=== PATIENT | male | born 1955 | race Caucasian/White ===

== ENCOUNTER 2019-12-23 07:17 | Outpatient (CLI) | payer BC ==
[2019-12-23 16:44] LABS: ALBUMIN 4.5 g/dL (3.2-5.5); ALBUMIN/GLOBULIN RATIO 1.6 (1.0-2.2); ALKALINE PHOSPHATASE 46 IU/L (42-121); ALT ALANINE AMINOTRANSFERASE 21 IU/L (10-60); AST ASPARTATE AMINOTRANSFERASE 20 IU/L (10-42); BILIRUBIN,TOTAL 0.7 mg/dL (0.2-1.0); BUN - BLOOD UREA NITROGEN 21 mg/dL (6-20); CALCIUM 9.2 mg/dL (8.5-10.3); CARBON DIOXIDE - CO2 27 mmol/L (21-32); CHLORIDE 106 mmol/L (101-111); CHOL/HDL RATIO 3.3 (<5.0); CHOLESTEROL 154 mg/dL; CREATININE 0.9 mg/dL (0.6-1.2); GLUCOSE 104 mg/dL (70-100); HDL CHOLESTEROL 46 mg/dL; LDL CHOLESTEROL,CALCULATED 92 mg/dL; SODIUM 140 mmol/L (135-145); TOTAL PROTEIN 7.3 g/dL (6.7-8.2); VLDL CHOLESTEROL 16 mg/dL
== END 2019-12-23 07:18 | disposition home or self-care (01) ==
LOC: LAB.S 07:17
PROVIDERS: ATTEND Internal Medicine Cardiovascular Disease
DX: I25.10 Atherosclerotic heart disease of native coronary artery without angina pectoris (principal)
CPT/HCPCS: 36415; 80053; 80061; 83721

== ENCOUNTER 2020-01-11 07:11 | Outpatient (CLI) | payer BC | END 2020-01-11 07:12 | disposition home or self-care (01) | LOC: LAB.S 07:11 | PROVIDERS: ATTEND Internal Medicine | DX: Z85.46 Personal history of malignant neoplasm of prostate (principal) | CPT/HCPCS: 36415; 84153 ==

== ENCOUNTER 2021-01-03 17:16 | Outpatient (CLI) | payer BC | END 2021-01-03 17:17 | disposition home or self-care (01) | LOC: LAB.S 17:16 | PROVIDERS: ATTEND Internal Medicine | DX: Z85.46 Personal history of malignant neoplasm of prostate (principal) | CPT/HCPCS: 36415; 84153 ==

== ENCOUNTER 2021-02-07 12:34 | Outpatient (CLI) | payer BC | END 2021-02-07 12:35 | disposition home or self-care (01) | LOC: LAB.S 12:34 | PROVIDERS: ATTEND Internal Medicine | DX: Z85.46 Personal history of malignant neoplasm of prostate (principal) | CPT/HCPCS: 36415; 84153 ==

== ENCOUNTER 2021-03-08 11:47 | Outpatient (CLI) | payer BC | END 2021-03-08 11:48 | disposition home or self-care (01) | LOC: LAB.S 11:47 | PROVIDERS: ATTEND Internal Medicine | DX: Z85.46 Personal history of malignant neoplasm of prostate (principal) | CPT/HCPCS: 36415; 84153 ==

== ENCOUNTER 2021-05-02 08:00 | Outpatient (CLI) | payer BC ==
[2021-05-02 18:33] LABS: ALBUMIN 4.1 g/dL (3.2-5.5); ALBUMIN/GLOBULIN RATIO 1.5 (1.0-2.2); BILIRUBIN,TOTAL 0.7 mg/dL (0.2-1.0); CALCIUM 8.9 mg/dL (8.5-10.3); CREATININE 1.2 mg/dL (0.6-1.2); POTASSIUM 3.7 mmol/L (3.5-5.0); TOTAL PROTEIN 6.9 g/dL (6.7-8.2)
== END 2021-05-02 23:59 ==
LOC: LAB 08:00
PROVIDERS: ATTEND Internal Medicine Medical Oncology
DX: C61 Malignant neoplasm of prostate (principal)
CPT/HCPCS: 36415; 80053

== ENCOUNTER 2021-08-18 13:04 | Outpatient (CLI) | payer BC | END 2021-08-18 13:05 | disposition home or self-care (01) | LOC: LAB.S 13:04 | PROVIDERS: ATTEND Internal Medicine | DX: Z85.46 Personal history of malignant neoplasm of prostate (principal) | CPT/HCPCS: 36415; 84153 ==

== ENCOUNTER 2021-09-12 11:48 | Outpatient (CLI) | payer BC | END 2021-09-12 11:49 | disposition home or self-care (01) | LOC: LAB 11:48 | PROVIDERS: ATTEND Internal Medicine | DX: Z85.46 Personal history of malignant neoplasm of prostate (principal) | CPT/HCPCS: 36415; 84153 ==

== ENCOUNTER 2021-11-17 11:24 | Outpatient (CLI) | payer MEDICARE | END 2021-11-17 11:25 | disposition home or self-care (01) | LOC: LAB.S 11:24 | PROVIDERS: ATTEND Internal Medicine | DX: Z85.46 Personal history of malignant neoplasm of prostate (principal) | CPT/HCPCS: 36415; 84153 ==

== ENCOUNTER 2021-12-21 10:08 | Outpatient (CLI) | payer MEDICARE | END 2021-12-21 10:09 | disposition home or self-care (01) | LOC: LAB 10:08 | PROVIDERS: ATTEND Internal Medicine | DX: C61 Malignant neoplasm of prostate (principal); C79.51 Secondary malignant neoplasm of bone | CPT/HCPCS: 36415; 84153 ==

== ENCOUNTER 2022-01-12 12:25 | Outpatient (CLI) | payer MEDICARE | END 2022-01-12 12:26 | disposition home or self-care (01) | LOC: LAB.S 12:25 | PROVIDERS: ATTEND Internal Medicine | DX: Z85.46 Personal history of malignant neoplasm of prostate (principal) | CPT/HCPCS: 36415; 84153 ==

== ENCOUNTER 2022-02-14 20:21 | Emergency (ER) | payer MEDICARE ==
[2022-02-14 21:00] LABS: BILIRUBIN,URINE NEGATIVE (NEGATIVE); GLUCOSE, URINE (UA) NEGATIVE (NEGATIVE); KETONES,URINE (UA) TRACE mg/dL (NEGATIVE); OCCULT BLOOD,URINE LARGE (NEGATIVE); PROTEIN,URINE >=300 mg/dL (NEGATIVE); UROBILINOGEN,URINE 1 (NORMAL) E.U./dL (NORMAL)
[2022-02-14 21:06] LABS: CLARITY,URINE TURBID (CLEAR)
[2022-02-14 21:07] LABS: BACTERIA,URINE None Seen /HPF (None Seen); EPITHELIAL CELLS,UR None Seen /HPF (<= Few); RBC,URINE TNTC /HPF (0-5); WBC,URINE 0-3 /HPF (0-3)
[2022-02-14 21:33] LABS: BASOPHILS # (AUTO) 0.1 10^3/uL (0.0-0.1); BASOPHILS % (AUTO) 1.3 %; EOSINOPHILS # (AUTO) 0.2 10^3/uL (0.0-0.7); EOSINOPHILS % (AUTO) 2.4 %; HCT - HEMATOCRIT 37.3 % (42.0-52.0); HGB - HEMOGLOBIN 11.6 g/dL (14.0-18.0); LYMPHOCYTES # (AUTO) 1.4 10^3/uL (1.5-3.5); LYMPHOCYTES % (AUTO) 18.8 %; MEAN CORPUSCULAR HEMOGLOBIN 24.8 pg (27.0-31.0); MEAN CORPUSCULAR HGB CONC 31.1 g/dL (32.0-36.0); MEAN CORPUSCULAR VOLUME 79.7 fL (80.0-94.0); MEAN PLATELET VOLUME 9.7 fL (7.4-11.4); MONOCYTES # (AUTO) 0.7 10^3/uL (0.0-1.0); MONOCYTES % (AUTO) 9.5 %; NEUTROPHILS # (AUTO) 5.2 10^3/uL (1.5-6.6); NEUTROPHILS % (AUTO) 67.7 %; PLT - PLATELET COUNT 310 10^3/uL (130-450); RED BLOOD COUNT 4.68 10^6/uL (4.70-6.10); WHITE BLOOD COUNT 7.7 x10^3/uL (4.8-10.8)
[2022-02-14] MEDS ORDERED: iohexoL-300 100 ML VIAL ONE (21:43)
[2022-02-14 21:49] LABS: ALBUMIN 4.2 g/dL (3.2-5.5); ALBUMIN/GLOBULIN RATIO 1.4 (1.0-2.2); BILIRUBIN,TOTAL 0.5 mg/dL (0.2-1.0); CALCIUM 9.2 mg/dL (8.5-10.3); CREATININE 1.3 mg/dL (0.6-1.2); POTASSIUM 3.9 mmol/L (3.5-5.0); TOTAL PROTEIN 7.2 g/dL (6.7-8.2)
[2022-02-14] MEDS ORDERED: iohexoL-300 100 ML VIAL IVP ONE (22:21)
[2022-02-14] MEDS ORDERED: MORPHINE 2 MG/ML CARPUJECT IVP STA (22:33)
[2022-02-14] MEDS ORDERED: ONDANSETRON 4 MG/2 ML VIAL IVP STA (22:33)
[2022-02-14] MEDS ORDERED: SODIUM CHLORIDE 0.9% 1,000 ML IV STA (22:33)
[2022-02-14] MEDS ORDERED: MORPHINE 2 MG/ML CARPUJECT ONE (22:47)
--- NOTE | 2022-02-14 23:29 | CT Report ---
PROCEDURE: ABDOMEN/PELVIS W INDICATIONS: R flank pain/stent placed 02/02/hematuria CONTRAST: 100mL Omni 300 TECHNIQUE: After the administration of intravenous contrast, 5 mm thick sections acquired from the diaphragms to the symphysis. 5 mm thick coronal and sagittal reformats were acquired. For radiation dose reducti on, the following was used: automated exposure control, adjustment of mA and/or kV according to rosendo ent size. COMPARISON: None. FINDINGS: Image quality: Excellent. Lung bases:There is minimal dependent atelectasis. Heart: Heart is normal in size. ABDOMEN: Liver: No mass lesion. Gallbladder: Within normal limits without calcified gallstones. Biliary ducts: No biliary ductal dilatation. Pancreas: Unremarkable. Spleen: Normal in size. Adrenal Glands: No adrenal nodules. Kidneys and Ureters: There is a right ureteral stent with the proximal portal and the renal pelvis a nd the distal coil in the bladder. There is severe right hydronephrosis and moderate to severe right hydroureter. There is high density within the right ureter and layering high density within the diste nded right renal pelvis consistent with blood product. A nonobstructing stone is demonstrated within the inferior pole the right kidney measuring up to 0.8 cm with attenuation values of approximately 50 0-600 Hounsfield units. Left kidney demonstrates no hydronephrosis or nephrolithiasis. Left ureter is nondistended. Stomach and Bowel: Stomach, small bowel loops, and colon are normal in caliber and wall thickness. N o evidence of appendicitis. Peritoneum: No abnormal intraperitoneal fluid. No free air. Ventral Wall: No hernia. Abdominal Nodes: No retroperitoneal or mesenteric adenopathy by size criteria. Vessels: Aorta and inferior vena cava are normal in size. PELVIS: Pelvic Organs:There are a few fiducial markers within the prostate.. Bladder:The bladder demonstrates normal wall thickness. No bladder stones. Pelvic Nodes: No enlarged lymph nodes. Miscellaneous: No inguinal hernias are seen. Bones: Multiple sclerotic lesions are demonstrated within the visualized osseous structures including lesions within the lower thoracic and throughout the lumbar spine. Associated scalloping along the s uperior and inferior endplates is demonstrated at L2. No retropulsed fragments in the spinal canal. T here are postsurgical changes status post posterior fixation at L3-L5. IMPRESSION: 1. Severe right hydronephrosis with moderate to severe right hydroureter associated with dependent bl ood product in the right renal collecting system and ureter. An underlying mass cannot be excluded. 2. Right ureteral stent demonstrated with the proximal coil in the renal pelvis and distal coil in th e bladder. 3. Nonobstructing right renal stone. 4. Multiple sclerotic lesions within the visualized osseous structures consistent with blastic metast atic disease. Reviewed by: Jorge Horne MD on 02/14/2022 11:37 PM PST Approved by: Jorge Horne MD on 02/14/2022 11:37 PM PST Station ID: [id number]
[2022-02-15 00:20] VITALS: BP 139/75
--- NOTE | 2022-02-15 00:36 | ED Physician Documentation ---
PD HPI MALE - Stated complaint Stated Complaint: MALE - Chief complaint Chief Complaint: Abd Pain - History obtained from History obtained from: Patient - Additional information Additional information: Patient is a 66-year-old male with a history of prostate cancer presenting for evaluation of gross hematuria and right flank pain. He is being seen by Dr. Martin at the [facility] with urology for right-sided hydronephrosis of unclear etiology. He had a ureter stent placed on February 02. He reports increased activity in the last 2 days with painting a boat house and crouching and moving around a lot on his knees. Around noon time he started having flank pain and subsequently has noticed blood in his urine.He takes a baby aspirin but otherwise denies blood thinners. He denies feeling dizzy, lightheaded, having fevers, chest pain, difficulty breathing, nausea vomiting or diarrhea.He denies pain with urination. Review of Systems Constitutional: denies: Fever Nose: denies: Congestion Cardiac: denies: Chest pain / pressure Respiratory: denies: Dyspnea GI: denies: Abdominal Pain, Vomiting : reports: Hematuria Musculoskeletal: reports: Back pain (Right flank) Neurologic: denies: Headache PD PAST MEDICAL HISTORY - Past Medical History Past Medical History: Yes Cardiovascular: Coronary artery disease : Kidney stones Other Past Medical History: Prostate Cancer that metastasized to his Lumbar Spine - Past Surgical History Past Surgical History: Yes Ortho: Other Cardiovascular: CABG - Present Medications Home Medications: Ambulatory Orders Medication Instructions Recorded Confirmed Amlodipine Besylate [Norvasc] 10 mg PO DAILY 04/10/21 04/10/21 Aspirin [Aspirin EC] 81 mg ORAL DAILY 04/10/21 04/10/21 Atorvastatin [Lipitor] 10 mg ORAL DAILY PM 04/10/21 04/10/21 Ezetimibe [Zetia] 10 mg PO QD 04/10/21 04/10/21 Latanoprost/Pf [Latanoprost 0.005% 2 drops OP DAILY PM 04/10/21 04/10/21 Eye Drop] Loratadine [Claritin] 10 mg ORAL DAILY 04/10/21 04/10/21 Omeprazole Magnesium 20 mg PO DAILY 04/10/21 04/10/21 Silodosin [Rapaflo] 8 mg PO DAILY 04/10/21 04/10/21 Bicalutamide [Casodex] 50 mg PO DAILY #90 tablet 05/29/21 oxyCODONE [Roxicodone] 5 mg PO ONCE 05/29/21 05/29/21 - Allergies Allergies/Adverse Reactions: Allergies Allergy/AdvReac Type Severity Reaction Status Date / Time No Known Drug Allergies Allergy Verified 02/14/22 20:44 - Social History Does the pt smoke?: No Smoking Status: Never smoker Does the pt drink ETOH?: No Does the pt have substance abuse?: No - Immunizations Immunizations are current?: Yes - POLST Patient has POLST: No PD ED PE NORMAL - General General: Alert and oriented X 3, No acute distress, Well developed/nourished - HEENT HEENT: Atraumatic - Neck Neck: Supple, no meningeal sign - Cardiac Cardiac: RRR, No murmur - Respiratory Respiratory: No respiratory distress, Clear bilaterally - Abdomen Abdomen: Soft, Non tender, Non distended - Back Back: Other (Right CVA tenderness to palpation) - Derm Derm: Warm and dry - Extremities Extremities: No edema Results - Vitals Vitals: Vital Signs - 24 hr 02/14/22 02/14/22 02/14/22 20:35 21:56 22:27 Temperature 36.9 C Heart Rate 92 73 76 Respiratory 18 16 16 Rate Blood Pressure 140/70 H 146/77 H 142/84 H O2 Saturation 98 98 97 02/15/22 02/15/22 00:19 01:00 Temperature 36.6 C Heart Rate 69 Respiratory 16 Rate Blood Pressure 139/75 H O2 Saturation 98 Oxygen O2 Source Room air - Labs Labs: Laboratory Tests 02/14/22 02/14/22 02/14/22 20:49 21:20 21:20 WBC 7.7 RBC 4.68 L Hgb 11.6 L Hct 37.3 L MCV 79.7 L MCH 24.8 L MCHC 31.1 L RDW 15.0 Plt Count 310 MPV 9.7 Neut # (Auto) 5.2 Lymph # (Auto) 1.4 L [place] # (Auto) 0.7 Eos # (Auto) 0.2 Baso # (Auto) 0.1 Absolute Nucleated RBC 0.00 Nucleated RBC % 0.0 Sodium 142 Potassium 3.9 Chloride 105 Carbon Dioxide 26 Anion Gap 11.0 BUN 26 H Creatinine 1.3 H Estimated GFR (MDRD) 55 L Glucose 116 H Calcium 9.2 Total Bilirubin 0.5 AST 21 ALT 22 Alkaline Phosphatase 65 Total Protein 7.2 Albumin 4.2 Globulin 3.0 Albumin/Globulin Ratio 1.4 Lipase 43 Urine Color RED/BLOODY Urine Clarity TURBID Urine pH 6.0 Ur Specific [place] 1.025 Urine Protein >=300 H Urine Glucose (UA) NEGATIVE Urine Ketones TRACE Urine Occult Blood LARGE H Urine Nitrite ... Urine Bilirubin NEGATIVE Urine Urobilinogen 1 (NORMAL) Ur Leukocyte Esterase ... Urine RBC TNTC H Urine WBC 0-3 Ur Epithelial Cells None Seen Ur Squamous Epith Cells Not Reportable Urine Bacteria None Seen Ur Microscopic Review INDICATED Urine Culture Comments NOT INDICATED PD MEDICAL DECISION MAKING - ED course Complexity details: reviewed old records ([facility] labs 02/02/22: Cr 1.35; Hgb 11.3/Hct 36.3), reviewed results, re-evaluated patient, d/w patient, d/w legal consultant (Dr Brown) ED course: 1240 - Discussed with Dr. Brown, on-call urology for the [facility]. Reviewed patient's presentation, labs, bladder scan and imaging, . One possibility is that the stent could have moved a little bit causing the hematuria. Nothing emergent to do this evening. Recommends outpatient follow-up with Dr. Martin. Patient evaluated with right flank pain and gross hematuria. Noted to already have a ureter stent in place. He is afebrile with stable vital signs. His labs appear to be at his baseline. A CT scan was reviewed. I did consult with urology who felt patient was stable for Outpatient follow-up. His urine does not suggest infection. Patient is able to void without difficulty (bladder scan ~150ml). Patient does report overdoing it with his activity in the last 2 days with painting a boat house on his property. I did encourage him to take it easier. Patient counseled on concerning symptoms to return for. Departure - Departure Disposition: 01 Home, Self Care Clinical Impression: Gross hematuria, Ureteral stent present Condition: Stable Instructions: Hematuria Poss Causes Comments: You could be having blood in your urine from your stent moving. At this time I do not see signs of an infection in your urine.Your labs appear stable.Please call Dr. Martin to arrange for close follow-up. Please also take it easy through the weekend. Return to the ER with any concerns. Discharge Date/Time: 02/15/22 01:00
== END 2022-02-15 01:00 | disposition home or self-care (01) ==
LOC: ED 20:21
DX: R31.0 Gross hematuria (principal); Z96.0 Presence of urogenital implants
CPT/HCPCS: 36415; 74177; 80053; 81001; 83690; 85025; 96372; 99283; 99284; Q9967; 81003; 87086

== ENCOUNTER 2022-02-23 12:30 | Outpatient (CLI) | payer MEDICARE ==
[2022-02-23 15:18] LABS: BASOPHILS # (AUTO) 0.1 10^3/uL (0.0-0.1); BASOPHILS % (AUTO) 1.4 %; EOSINOPHILS # (AUTO) 0.1 10^3/uL (0.0-0.7); EOSINOPHILS % (AUTO) 2.5 %; HCT - HEMATOCRIT 37.7 % (42.0-52.0); HGB - HEMOGLOBIN 11.3 g/dL (14.0-18.0); LYMPHOCYTES # (AUTO) 1.5 10^3/uL (1.5-3.5); LYMPHOCYTES % (AUTO) 26.7 %; MEAN CORPUSCULAR HEMOGLOBIN 24.5 pg (27.0-31.0); MEAN CORPUSCULAR VOLUME 81.8 fL (80.0-94.0); MEAN PLATELET VOLUME 10.4 fL (7.4-11.4); MONOCYTES # (AUTO) 0.6 10^3/uL (0.0-1.0); MONOCYTES % (AUTO) 10.9 %; NEUTROPHILS # (AUTO) 3.3 10^3/uL (1.5-6.6); NEUTROPHILS % (AUTO) 58.1 %; PLT - PLATELET COUNT 306 10^3/uL (130-450); RED BLOOD COUNT 4.61 10^6/uL (4.70-6.10); WHITE BLOOD COUNT 5.6 x10^3/uL (4.8-10.8)
[2022-02-23 15:30] LABS: ALBUMIN/GLOBULIN RATIO 1.2 (1.0-2.2); BILIRUBIN,TOTAL 0.4 mg/dL (0.2-1.0); CALCIUM 9.4 mg/dL (8.5-10.3); CREATININE 1.2 mg/dL (0.6-1.2); POTASSIUM 4.4 mmol/L (3.5-5.0); TOTAL PROTEIN 7.3 g/dL (6.7-8.2)
== END 2022-02-23 12:31 | disposition home or self-care (01) ==
LOC: LAB.S 12:30
PROVIDERS: ATTEND Specialist
DX: C79.51 Secondary malignant neoplasm of bone (principal)
CPT/HCPCS: 36415; 80053; 84153; 85025

== ENCOUNTER 2022-03-17 16:08 | Outpatient (CLI) | payer MEDICARE ==
[2022-03-17 16:26] LABS: BASOPHILS # (AUTO) 0.1 10^3/uL (0.0-0.1); BASOPHILS % (AUTO) 1.7 %; EOSINOPHILS # (AUTO) 0.2 10^3/uL (0.0-0.7); EOSINOPHILS % (AUTO) 3.7 %; HCT - HEMATOCRIT 36.3 % (42.0-52.0); LYMPHOCYTES # (AUTO) 1.6 10^3/uL (1.5-3.5); LYMPHOCYTES % (AUTO) 29.9 %; MEAN CORPUSCULAR HEMOGLOBIN 24.4 pg (27.0-31.0); MEAN CORPUSCULAR HGB CONC 30.3 g/dL (32.0-36.0); MEAN CORPUSCULAR VOLUME 80.7 fL (80.0-94.0); MEAN PLATELET VOLUME 9.4 fL (7.4-11.4); MONOCYTES # (AUTO) 0.6 10^3/uL (0.0-1.0); MONOCYTES % (AUTO) 10.3 %; NEUTROPHILS # (AUTO) 2.9 10^3/uL (1.5-6.6); NEUTROPHILS % (AUTO) 54.2 %; PLT - PLATELET COUNT 337 10^3/uL (130-450); RED CELL DISTRIBUTION WIDTH 15.2 % (12.0-15.0); WHITE BLOOD COUNT 5.4 x10^3/uL (4.8-10.8)
[2022-03-17 16:34] LABS: ALBUMIN 4.2 g/dL (3.2-5.5); ALBUMIN/GLOBULIN RATIO 1.2 (1.0-2.2); BILIRUBIN,TOTAL 0.4 mg/dL (0.2-1.0); CALCIUM 9.4 mg/dL (8.5-10.3); CREATININE 1.3 mg/dL (0.6-1.2); POTASSIUM 4.5 mmol/L (3.5-5.0); TOTAL PROTEIN 7.6 g/dL (6.7-8.2)
[2022-03-21 16:08] LABS: FREE TESTOSTERONE(DIRECT) 1.3 pg/mL (6.6-18.1); TESTOSTERONE <3 ng/dL (264-916)
== END 2022-03-17 16:09 | disposition home or self-care (01) ==
LOC: LAB 16:08
PROVIDERS: ATTEND Nurse Practitioner
DX: C61 Malignant neoplasm of prostate (principal)
CPT/HCPCS: 36415; 80053; 84153; 84402; 84403; 85025

== ENCOUNTER 2022-04-06 11:19 | Outpatient (CLI) | payer MEDICARE ==
[2022-04-06 14:47] LABS: BASOPHILS # (AUTO) 0.1 10^3/uL (0.0-0.1); BASOPHILS % (AUTO) 1.9 %; EOSINOPHILS # (AUTO) 0.1 10^3/uL (0.0-0.7); EOSINOPHILS % (AUTO) 1.9 %; HCT - HEMATOCRIT 37.3 % (42.0-52.0); HGB - HEMOGLOBIN 11.2 g/dL (14.0-18.0); LYMPHOCYTES # (AUTO) 1.3 10^3/uL (1.5-3.5); LYMPHOCYTES % (AUTO) 24.3 %; MEAN PLATELET VOLUME 10.3 fL (7.4-11.4); MONOCYTES # (AUTO) 0.6 10^3/uL (0.0-1.0); NEUTROPHILS # (AUTO) 3.1 10^3/uL (1.5-6.6); NEUTROPHILS % (AUTO) 60.7 %; PLT - PLATELET COUNT 305 10^3/uL (130-450); RED BLOOD COUNT 4.66 10^6/uL (4.70-6.10); RED CELL DISTRIBUTION WIDTH 14.9 % (12.0-15.0); WHITE BLOOD COUNT 5.2 x10^3/uL (4.8-10.8)
[2022-04-06 16:02] LABS: % IRON SATURATION 7 % (20-50); IRON 36 ug/dL (45-182); TOTAL IRON BINDING CAPACITY 491 ug/dL (250-450); TRANSFERRIN 351 mg/dL (180-329)
[2022-04-06 16:16] LABS: ALBUMIN 3.9 g/dL (3.2-5.5); ALBUMIN/GLOBULIN RATIO 1.1 (1.0-2.2); BILIRUBIN,TOTAL 0.6 mg/dL (0.2-1.0); CALCIUM 9.4 mg/dL (8.5-10.3); CREATININE 1.1 mg/dL (0.6-1.2); POTASSIUM 4.5 mmol/L (3.5-5.0); TOTAL PROTEIN 7.4 g/dL (6.7-8.2)
== END 2022-04-06 11:20 | disposition home or self-care (01) ==
LOC: LAB.S 11:19
PROVIDERS: ATTEND Internal Medicine
DX: D64.9 Anemia, unspecified (principal); C61 Malignant neoplasm of prostate; C79.51 Secondary malignant neoplasm of bone; R79.89 Other specified abnormal findings of blood chemistry
CPT/HCPCS: 36415; 80053; 81599; 82607; 82610; 83540; 84153; 84466; 85025

== ENCOUNTER 2022-05-09 16:29 | Outpatient (CLI) | payer MEDICARE ==
[2022-05-09 16:52] LABS: BASOPHILS # (AUTO) 0.1 10^3/uL (0.0-0.1); BASOPHILS % (AUTO) 1.1 %; EOSINOPHILS # (AUTO) 0.1 10^3/uL (0.0-0.7); HCT - HEMATOCRIT 41.1 % (42.0-52.0); HGB - HEMOGLOBIN 12.9 g/dL (14.0-18.0); LYMPHOCYTES % (AUTO) 19.2 %; MEAN CORPUSCULAR HEMOGLOBIN 25.2 pg (27.0-31.0); MEAN CORPUSCULAR HGB CONC 31.4 g/dL (32.0-36.0); MEAN CORPUSCULAR VOLUME 80.3 fL (80.0-94.0); MEAN PLATELET VOLUME 9.4 fL (7.4-11.4); MONOCYTES # (AUTO) 0.5 10^3/uL (0.0-1.0); MONOCYTES % (AUTO) 9.4 %; NEUTROPHILS # (AUTO) 3.7 10^3/uL (1.5-6.6); NEUTROPHILS % (AUTO) 67.9 %; PLT - PLATELET COUNT 261 10^3/uL (130-450); RED BLOOD COUNT 5.12 10^6/uL (4.70-6.10); RED CELL DISTRIBUTION WIDTH 16.4 % (12.0-15.0); WHITE BLOOD COUNT 5.4 x10^3/uL (4.8-10.8)
[2022-05-09 17:04] LABS: ALBUMIN/GLOBULIN RATIO 1.3 (1.0-2.2); BILIRUBIN,TOTAL 0.6 mg/dL (0.2-1.0); CALCIUM 9.4 mg/dL (8.5-10.3); CREATININE 1.1 mg/dL (0.6-1.2); POTASSIUM 4.1 mmol/L (3.5-5.0); TOTAL PROTEIN 7.2 g/dL (6.7-8.2)
== END 2022-05-09 16:30 | disposition home or self-care (01) ==
LOC: LAB 16:29
PROVIDERS: ATTEND Nurse Practitioner
DX: C61 Malignant neoplasm of prostate (principal)
CPT/HCPCS: 36415; 80053; 84153; 85025

== ENCOUNTER 2022-05-18 14:00 | Outpatient (CLI) | payer MEDICARE ==
[2022-05-18 14:49] LABS: BASOPHILS # (AUTO) 0.1 10^3/uL (0.0-0.1); BASOPHILS % (AUTO) 1.2 %; EOSINOPHILS # (AUTO) 0.1 10^3/uL (0.0-0.7); EOSINOPHILS % (AUTO) 1.7 %; HCT - HEMATOCRIT 38.1 % (42.0-52.0); HGB - HEMOGLOBIN 11.8 g/dL (14.0-18.0); LYMPHOCYTES % (AUTO) 19.1 %; MEAN CORPUSCULAR HEMOGLOBIN 25.5 pg (27.0-31.0); MEAN CORPUSCULAR VOLUME 82.5 fL (80.0-94.0); MEAN PLATELET VOLUME 9.2 fL (7.4-11.4); MONOCYTES # (AUTO) 0.5 10^3/uL (0.0-1.0); MONOCYTES % (AUTO) 9.4 %; NEUTROPHILS # (AUTO) 3.6 10^3/uL (1.5-6.6); NEUTROPHILS % (AUTO) 68.4 %; PLT - PLATELET COUNT 219 10^3/uL (130-450); RED BLOOD COUNT 4.62 10^6/uL (4.70-6.10); RED CELL DISTRIBUTION WIDTH 16.7 % (12.0-15.0); WHITE BLOOD COUNT 5.2 x10^3/uL (4.8-10.8)
[2022-05-18 15:03] LABS: ALBUMIN 3.9 g/dL (3.2-5.5); ALBUMIN/GLOBULIN RATIO 1.3 (1.0-2.2); BILIRUBIN,TOTAL 0.4 mg/dL (0.2-1.0); CALCIUM 9.4 mg/dL (8.5-10.3); CREATININE 1.1 mg/dL (0.6-1.2); POTASSIUM 4.3 mmol/L (3.5-5.0); TOTAL PROTEIN 6.8 g/dL (6.7-8.2)
== END 2022-05-18 14:01 | disposition home or self-care (01) ==
LOC: LAB 14:00
PROVIDERS: ATTEND Specialist
DX: C79.51 Secondary malignant neoplasm of bone (principal)
CPT/HCPCS: 36415; 80053; 84153; 85025

== ENCOUNTER 2022-06-12 16:56 | Outpatient (CLI) | payer MEDICARE ==
[2022-06-12 17:43] LABS: BASOPHILS % (AUTO) 0.7 %; EOSINOPHILS # (AUTO) 0.1 10^3/uL (0.0-0.7); EOSINOPHILS % (AUTO) 1.8 %; HCT - HEMATOCRIT 42.7 % (42.0-52.0); HGB - HEMOGLOBIN 13.6 g/dL (14.0-18.0); LYMPHOCYTES # (AUTO) 0.9 10^3/uL (1.5-3.5); LYMPHOCYTES % (AUTO) 16.4 %; MEAN CORPUSCULAR HEMOGLOBIN 26.8 pg (27.0-31.0); MEAN CORPUSCULAR HGB CONC 31.9 g/dL (32.0-36.0); MEAN CORPUSCULAR VOLUME 84.2 fL (80.0-94.0); MEAN PLATELET VOLUME 9.4 fL (7.4-11.4); MONOCYTES # (AUTO) 0.4 10^3/uL (0.0-1.0); MONOCYTES % (AUTO) 7.8 %; NEUTROPHILS # (AUTO) 4.1 10^3/uL (1.5-6.6); NEUTROPHILS % (AUTO) 72.9 %; PLT - PLATELET COUNT 287 10^3/uL (130-450); RED BLOOD COUNT 5.07 10^6/uL (4.70-6.10); RED CELL DISTRIBUTION WIDTH 16.6 % (12.0-15.0); WHITE BLOOD COUNT 5.6 x10^3/uL (4.8-10.8)
[2022-06-12 17:55] LABS: ALBUMIN 4.4 g/dL (3.2-5.5); ALBUMIN/GLOBULIN RATIO 1.4 (1.0-2.2); BILIRUBIN,TOTAL 0.5 mg/dL (0.2-1.0); CALCIUM 9.6 mg/dL (8.5-10.3); CREATININE 1.5 mg/dL (0.6-1.2); POTASSIUM 4.4 mmol/L (3.5-5.0); TOTAL PROTEIN 7.5 g/dL (6.7-8.2)
== END 2022-06-12 16:57 | disposition home or self-care (01) ==
LOC: LAB 16:56
PROVIDERS: ATTEND Nurse Practitioner
DX: C61 Malignant neoplasm of prostate (principal)
CPT/HCPCS: 36415; 80053; 84153; 85025

== ENCOUNTER 2022-06-30 13:07 | Outpatient (CLI) | payer MEDICARE ==
[2022-06-30 13:25] LABS: BASOPHILS # (AUTO) 0.1 10^3/uL (0.0-0.1); BASOPHILS % (AUTO) 0.8 %; EOSINOPHILS # (AUTO) 0.1 10^3/uL (0.0-0.7); EOSINOPHILS % (AUTO) 1.5 %; HCT - HEMATOCRIT 40.7 % (42.0-52.0); HGB - HEMOGLOBIN 13.3 g/dL (14.0-18.0); LYMPHOCYTES # (AUTO) 0.8 10^3/uL (1.5-3.5); MEAN CORPUSCULAR HGB CONC 32.7 g/dL (32.0-36.0); MEAN CORPUSCULAR VOLUME 82.7 fL (80.0-94.0); MEAN PLATELET VOLUME 9.4 fL (7.4-11.4); MONOCYTES # (AUTO) 0.5 10^3/uL (0.0-1.0); MONOCYTES % (AUTO) 8.9 %; NEUTROPHILS # (AUTO) 4.6 10^3/uL (1.5-6.6); NEUTROPHILS % (AUTO) 75.5 %; PLT - PLATELET COUNT 227 10^3/uL (130-450); RED BLOOD COUNT 4.92 10^6/uL (4.70-6.10); WHITE BLOOD COUNT 6.1 x10^3/uL (4.8-10.8)
[2022-06-30 13:40] LABS: ALBUMIN 4.1 g/dL (3.2-5.5); ALBUMIN/GLOBULIN RATIO 1.3 (1.0-2.2); BILIRUBIN,TOTAL 0.7 mg/dL (0.2-1.0); CALCIUM 9.3 mg/dL (8.5-10.3); CREATININE 1.1 mg/dL (0.6-1.2); POTASSIUM 4.4 mmol/L (3.5-5.0); TOTAL PROTEIN 7.3 g/dL (6.7-8.2)
== END 2022-06-30 13:08 | disposition home or self-care (01) ==
LOC: LAB 13:07
PROVIDERS: ATTEND Specialist
DX: C79.51 Secondary malignant neoplasm of bone (principal)
CPT/HCPCS: 36415; 80053; 84153; 85025

== ENCOUNTER 2022-08-10 15:44 | Outpatient (CLI) | payer MEDICARE ==
[2022-08-10 16:06] LABS: BASOPHILS % (AUTO) 0.8 %; EOSINOPHILS # (AUTO) 0.1 10^3/uL (0.0-0.7); HCT - HEMATOCRIT 38.2 % (42.0-52.0); HGB - HEMOGLOBIN 12.8 g/dL (14.0-18.0); LYMPHOCYTES # (AUTO) 0.9 10^3/uL (1.5-3.5); LYMPHOCYTES % (AUTO) 17.5 %; MEAN CORPUSCULAR HEMOGLOBIN 28.4 pg (27.0-31.0); MEAN CORPUSCULAR HGB CONC 33.5 g/dL (32.0-36.0); MEAN CORPUSCULAR VOLUME 84.9 fL (80.0-94.0); MONOCYTES # (AUTO) 0.5 10^3/uL (0.0-1.0); MONOCYTES % (AUTO) 9.8 %; NEUTROPHILS # (AUTO) 3.6 10^3/uL (1.5-6.6); NEUTROPHILS % (AUTO) 70.7 %; PLT - PLATELET COUNT 223 10^3/uL (130-450); RED CELL DISTRIBUTION WIDTH 13.2 % (12.0-15.0)
[2022-08-10 16:15] LABS: ALBUMIN 3.9 g/dL (3.2-5.5); ALBUMIN/GLOBULIN RATIO 1.3 (1.0-2.2); BILIRUBIN,TOTAL 0.8 mg/dL (0.2-1.0); CALCIUM 8.7 mg/dL (8.5-10.3); CREATININE 1.3 mg/dL (0.6-1.2); POTASSIUM 3.7 mmol/L (3.5-5.0)
== END 2022-08-10 15:45 | disposition home or self-care (01) ==
LOC: LAB 15:44
PROVIDERS: ATTEND Specialist
DX: C79.51 Secondary malignant neoplasm of bone (principal)
CPT/HCPCS: 36415; 80053; 84153; 85025

== ENCOUNTER 2022-08-13 12:22 | Outpatient (CLI) | payer MEDICARE | END 2022-08-13 12:23 | disposition home or self-care (01) | LOC: LAB 12:22 | PROVIDERS: ATTEND Specialist | DX: C79.51 Secondary malignant neoplasm of bone (principal) | CPT/HCPCS: 36415; 84403 ==

== ENCOUNTER 2022-09-12 16:26 | Outpatient (CLI) | payer MEDICARE ==
[2022-09-12 16:47] LABS: BASOPHILS % (AUTO) 0.9 %; EOSINOPHILS # (AUTO) 0.1 10^3/uL (0.0-0.7); EOSINOPHILS % (AUTO) 1.2 %; HCT - HEMATOCRIT 38.8 % (42.0-52.0); HGB - HEMOGLOBIN 12.8 g/dL (14.0-18.0); LYMPHOCYTES # (AUTO) 0.9 10^3/uL (1.5-3.5); LYMPHOCYTES % (AUTO) 20.8 %; MEAN CORPUSCULAR HEMOGLOBIN 28.8 pg (27.0-31.0); MEAN CORPUSCULAR VOLUME 87.4 fL (80.0-94.0); MEAN PLATELET VOLUME 9.5 fL (7.4-11.4); MONOCYTES # (AUTO) 0.4 10^3/uL (0.0-1.0); MONOCYTES % (AUTO) 9.9 %; NEUTROPHILS # (AUTO) 2.9 10^3/uL (1.5-6.6); NEUTROPHILS % (AUTO) 67.2 %; PLT - PLATELET COUNT 238 10^3/uL (130-450); RED BLOOD COUNT 4.44 10^6/uL (4.70-6.10); RED CELL DISTRIBUTION WIDTH 12.9 % (12.0-15.0); WHITE BLOOD COUNT 4.3 x10^3/uL (4.8-10.8)
[2022-09-12 16:59] LABS: ALBUMIN 4.3 g/dL (3.2-5.5); ALBUMIN/GLOBULIN RATIO 1.4 (1.0-2.2); BILIRUBIN,TOTAL 0.7 mg/dL (0.2-1.0); CALCIUM 9.1 mg/dL (8.5-10.3); CREATININE 1.1 mg/dL (0.6-1.2); TOTAL PROTEIN 7.4 g/dL (6.7-8.2)
[2022-09-13 21:07] LABS: TESTOSTERONE <3 ng/dL (264-916)
== END 2022-09-12 16:27 | disposition home or self-care (01) ==
LOC: LAB 16:26
PROVIDERS: ATTEND Nurse Practitioner
DX: C61 Malignant neoplasm of prostate (principal)
CPT/HCPCS: 36415; 80053; 84153; 84402; 84403; 85025

== ENCOUNTER 2022-09-21 15:36 | Outpatient (CLI) | payer MEDICARE ==
[2022-09-21 16:00] LABS: BASOPHILS % (AUTO) 1.2 %; EOSINOPHILS # (AUTO) 0.1 10^3/uL (0.0-0.7); EOSINOPHILS % (AUTO) 2.1 %; HCT - HEMATOCRIT 36.8 % (42.0-52.0); HGB - HEMOGLOBIN 12.5 g/dL (14.0-18.0); LYMPHOCYTES # (AUTO) 0.8 10^3/uL (1.5-3.5); LYMPHOCYTES % (AUTO) 25.5 %; MEAN CORPUSCULAR HEMOGLOBIN 29.5 pg (27.0-31.0); MEAN CORPUSCULAR VOLUME 86.8 fL (80.0-94.0); MEAN PLATELET VOLUME 9.2 fL (7.4-11.4); MONOCYTES # (AUTO) 0.3 10^3/uL (0.0-1.0); MONOCYTES % (AUTO) 10.3 %; NEUTROPHILS % (AUTO) 60.6 %; PLT - PLATELET COUNT 207 10^3/uL (130-450); RED BLOOD COUNT 4.24 10^6/uL (4.70-6.10); RED CELL DISTRIBUTION WIDTH 12.7 % (12.0-15.0); WHITE BLOOD COUNT 3.3 x10^3/uL (4.8-10.8)
[2022-09-21 16:11] LABS: ALBUMIN/GLOBULIN RATIO 1.3 (1.0-2.2); BILIRUBIN,TOTAL 0.8 mg/dL (0.2-1.0); CALCIUM 9.1 mg/dL (8.5-10.3); CREATININE 1.1 mg/dL (0.6-1.2); POTASSIUM 3.4 mmol/L (3.5-5.0)
== END 2022-09-21 15:37 | disposition home or self-care (01) ==
LOC: LAB 15:36
PROVIDERS: ATTEND Specialist
DX: C79.51 Secondary malignant neoplasm of bone (principal)
CPT/HCPCS: 36415; 80053; 84153; 84403; 85025

== ENCOUNTER 2022-11-02 14:02 | Outpatient (CLI) | payer MEDICARE ==
[2022-11-02 14:14] LABS: EOSINOPHILS # (AUTO) 0.1 10^3/uL (0.0-0.7); EOSINOPHILS % (AUTO) 1.5 %; HCT - HEMATOCRIT 36.8 % (42.0-52.0); HGB - HEMOGLOBIN 12.4 g/dL (14.0-18.0); LYMPHOCYTES # (AUTO) 0.8 10^3/uL (1.5-3.5); LYMPHOCYTES % (AUTO) 18.8 %; MEAN CORPUSCULAR HEMOGLOBIN 29.7 pg (27.0-31.0); MEAN CORPUSCULAR HGB CONC 33.7 g/dL (32.0-36.0); MEAN PLATELET VOLUME 8.8 fL (7.4-11.4); MONOCYTES # (AUTO) 0.3 10^3/uL (0.0-1.0); MONOCYTES % (AUTO) 8.3 %; NEUTROPHILS # (AUTO) 2.9 10^3/uL (1.5-6.6); NEUTROPHILS % (AUTO) 70.2 %; PLT - PLATELET COUNT 213 10^3/uL (130-450); RED BLOOD COUNT 4.18 10^6/uL (4.70-6.10); RED CELL DISTRIBUTION WIDTH 12.2 % (12.0-15.0); WHITE BLOOD COUNT 4.1 x10^3/uL (4.8-10.8)
[2022-11-02 14:29] LABS: ALBUMIN 4.3 g/dL (3.2-5.5); ALBUMIN/GLOBULIN RATIO 1.5 (1.0-2.2); BILIRUBIN,TOTAL 0.5 mg/dL (0.2-1.0); CALCIUM 9.6 mg/dL (8.5-10.3); CREATININE 1.1 mg/dL (0.6-1.3); TOTAL PROTEIN 7.1 g/dL (6.4-8.9)
== END 2022-11-02 14:03 | disposition home or self-care (01) ==
LOC: LAB 14:02
PROVIDERS: ATTEND Specialist
DX: C79.51 Secondary malignant neoplasm of bone (principal)
CPT/HCPCS: 36415; 80053; 84153; 84403; 85025

== ENCOUNTER 2022-11-18 14:55 | Emergency (ER) | payer MEDICARE ==
[2022-11-18 15:05] VITALS: BP 150/70; O2SAT 100
--- OUTSIDE RECORDS SUMMARY | 2022-11-18 15:08 | EXTERNAL MEDICAL SUMMARY RPT | Continuity of Care Document ---
Author Name Unknown Address [address] [place] [address] Phone Organization [facility] Address [address] [place] [address] Phone Care Team Providers Care Roller Inspector Name Role Phone Unavailable Unavailable Unavailable Mehrdad Faria Pa-C Unavailable Unavailable Medications date description facility 2022-10-25 00:00 tramadol [facility] 2022-10-26 00:00 tramadol [facility] 2022-10-25 00:00 chlorhexidine gluconate [facility] 2022-10-25 00:00 oxycodone [facility] 2022-10-26 00:00 oxycodone [facility] 2022-10-25 00:00 enzalutamide [facility] 2022-10-26 00:00 enzalutamide [facility] 2022-10-25 00:00 amoxicillin-pot [facility]avulanate [facility] 2022-10-25 00:00 silodosin [facility] 2022-10-26 00:00 silodosin [facility] 2022-10-25 00:00 amoxicillin-pot clavulanate [facility] 2022-10-25 00:00 oxycodone [facility] 2022-10-26 00:00 oxycodone [facility] 2022-10-25 00:00 enzalutamide [facility] 2022-10-26 00:00 enzalutamide [facility] 2022-10-25 00:00 silodosin [facility] 2022-10-26 00:00 silodosin [facility] 2022-10-25 00:00 enzalutamide [facility] 2022-10-26 00:00 enzalutamide [facility] 2022-10-25 00:00 omeprazole [facility] 2022-10-26 00:00 omeprazole [facility] 2022-10-25 00:00 relugolix [facility] 2022-10-26 00:00 relugolix [facility] 2022-10-25 00:00 enzalutamide [facility] 2022-10-26 00:00 enzalutamide [facility] 2022-10-25 00:00 relugolix [facility] 2022-10-26 00:00 relugolix [facility] 2022-10-25 00:00 amlodipine [facility] 2022-10-26 00:00 amlodipine [facility] 2022-10-25 00:00 relugolix [facility] 2022-10-26 00:00 relugolix [facility] 2022-10-25 00:00 chlorhexidine gluconate [facility] 2022-10-25 00:00 oxycodone [facility] 2022-10-26 00:00 oxycodone [facility] 2022-10-25 00:00 amlodipine [facility] 2022-10-26 00:00 amlodipine [facility] 2022-10-25 00:00 gabapentin [facility] 2022-10-26 00:00 gabapentin [facility] 2022-10-25 00:00 amlodipine [facility] 2022-10-26 00:00 amlodipine [facility] 2022-10-25 00:00 ezetimibe [facility] 2022-10-26 00:00 ezetimibe [facility] 2022-10-25 00:00 ezetimibe [facility] 2022-10-26 00:00 ezetimibe [facility] 2022-10-25 00:00 tramadol [facility] 2022-10-26 00:00 tramadol [facility] 2022-10-25 00:00 atorvastatin [facility] 2022-10-26 00:00 atorvastatin [facility] 2022-10-25 00:00 gabapentin [facility] 2022-10-26 00:00 gabapentin [facility] 2022-10-25 00:00 atorvastatin [facility] 2022-10-26 00:00 atorvastatin [facility] 2022-10-25 00:00 omeprazole [facility] 2022-10-26 00:00 omeprazole [facility] 2022-10-25 00:00 oxybutynin chloride [facility] 2022-10-26 00:00 oxybutynin chloride [facility] 2022-10-25 00:00 amoxicillin-pot clavulanate [facility] 2022-10-25 00:00 silodosin [facility] 2022-10-26 00:00 silodosin [facility] 2022-10-25 00:00 amlodipine [facility] 2022-10-26 00:00 amlodipine [facility] 2022-10-25 00:00 gabapentin [facility] 2022-10-26 00:00 gabapentin [facility] 2022-10-25 00:00 atorvastatin [facility] 2022-10-26 00:00 atorvastatin [facility] 2022-10-25 00:00 omeprazole [facility] 2022-10-26 00:00 omeprazole [facility] 2022-10-25 00:00 oxybutynin chloride [facility] 2022-10-26 00:00 oxybutynin chloride [facility] 2022-10-25 00:00 atorvastatin [facility] 2022-10-26 00:00 atorvastatin [facility] 2022-10-25 00:00 omeprazole [facility] 2022-10-26 00:00 omeprazole [facility] 2022-10-25 00:00 oxycodone [facility] 2022-10-26 00:00 oxycodone [facility] 2022-10-25 00:00 tramadol [facility] 2022-10-26 00:00 tramadol [facility] 2022-10-25 00:00 ezetimibe [facility] 2022-10-26 00:00 ezetimibe [facility] 2022-10-25 00:00 gabapentin [facility] 2022-10-26 00:00 gabapentin [facility] [place] 2022-10-25 00:00 relugolix [facility] [place] 2022-10-26 00:00 relugolix [facility] [place] 2022-10-25 00:00 amoxicillin-pot clavulanate [facility] [place] 2022-10-25 00:00 ezetimibe [facility] [place] 2022-10-26 00:00 ezetimibe [facility] [place] 2022-10-25 00:00 silodosin [facility] [place] 2022-10-26 00:00 silodosin [facility] [place] 2022-10-25 00:00 chlorhexidine gluconate [facility] [place] 2022-10-25 00:00 tramadol [facility] [place] 2022-10-26 00:00 tramadol [facility] [place] 2022-10-25 00:00 oxybutynin chloride [facility] [place] 2022-10-26 00:00 oxybutynin chloride [facility] [place] 2022-10-25 00:00 oxybutynin chloride [facility] [place] 2022-10-26 00:00 oxybutynin chloride [facility] [place] 2022-10-25 00:00 chlorhexidine gluconate [facility] [place] 2022-10-25 00:00 relugolix [facility] [place] 2022-10-26 00:00 relugolix [facility] [place] Problems date description facility 2022-10-25 00:00 Infection of tooth [facility] [place] 2022-10-25 00:00 Acute apical periodo ntitis of pulpal origin [facility] [place] 2022-10-25 00:00 Periapical abscess without sinu s [facility] [place] Procedures date description facility 2022-10-25 00:00 Visit Code Hold [facility] [place] Vital Signs date measurement value units 2022-10-25 00:00 BMI 24.94 kg/m2 2022-10-25 00:00 BP_diastolic 74 mmHg 2022-10-25 00:00 BP_systolic 156 mmHg 2022-10-25 00:00 heart_rate 76 /min 2022-10-25 00:00 height_metric 177.8 cm 2022-10-25 00:00 height_standard 70 in 2022-10-25 00:00 respiration_rate 15 /min 2022-10-25 00:00 temperature_metric 36.56 C 2022-10-25 00:00 temperature_standard 97.8 F 2022-10-25 00:00 weight_metric 78.56 kg 2022-10-25 00:00 weight_standard 173.19 lb
--- NOTE | 2022-11-18 15:20 | ED Physician Documentation ---
History of Present Illness - Stated complaint Stated Complaint: C+,FEVER - Chief complaint Chief Complaint: General - History obtained from History obtained from: Patient - History of Present Illness Timing: How many days ago (2) Pain level max: 0 Pain level now: 0 - Additonal information Additional information: 67-year-old male with a history of prostate cancer, currently undergoing treatment presents to the emergency department stating he is positive for COVID at home. He is requesting antiviral medication. Has had subjective fevers and chills. Cough but no difficulty breathing. No vomiting. Nothing makes it better or worse. Has been COVID vaccinated. Review of Systems Respiratory: reports: Cough Skin: denies: Rash PD PAST MEDICAL HISTORY - Past Medical History Cardiovascular: Coronary artery disease : Kidney stones - Past Surgical History Past Surgical History: Yes Ortho: Other Cardiovascular: CABG - Present Medications Home Medications: Ambulatory Orders Medication Instructions Recorded Confirmed Amlodipine Besylate [Norvasc] 10 mg PO DAILY 04/10/21 04/10/21 Aspirin [Aspirin EC] 81 mg ORAL DAILY 04/10/21 04/10/21 Atorvastatin [Lipitor] 10 mg ORAL DAILY PM 04/10/21 04/10/21 Ezetimibe [Zetia] 10 mg PO QD 04/10/21 04/10/21 Latanoprost/Pf [Latanoprost 0.005% 2 drops OP DAILY PM 04/10/21 04/10/21 Eye Drop] Loratadine [Claritin] 10 mg ORAL DAILY 04/10/21 04/10/21 Omeprazole Magnesium 20 mg PO DAILY 04/10/21 04/10/21 Silodosin [Rapaflo] 8 mg PO DAILY 04/10/21 04/10/21 Bicalutamide [Casodex] 50 mg PO DAILY #90 tablet 05/29/21 oxyCODONE [Roxicodone] 5 mg PO ONCE 05/29/21 05/29/21 - Allergies Allergies/Adverse Reactions: Allergies Allergy/AdvReac Type Severity Reaction Status Date / Time No Known Drug Allergies Allergy Verified 11/18/22 14:58 - Social History Does the pt smoke?: No Smoking Status: Never smoker Does the pt drink ETOH?: No Does the pt have substance abuse?: No - Immunizations Immunizations are current?: Yes - POLST Patient has POLST: No PD ED PE NORMAL - Vitals Vital signs reviewed: Yes - General General: Alert and oriented X 3, No acute distress - HEENT HEENT: Moist mucous membranes - Neck Neck: Supple, no meningeal sign - Cardiac Cardiac: RRR, Strong equal pulses - Respiratory Respiratory: No respiratory distress, Clear bilaterally - Derm Derm: Warm and dry - Neuro Neuro: Alert and oriented X 3 - Psych Psych: Normal mood, Normal affect Results - Vitals Vitals: Vital Signs - 24 hr 11/18/22 14:58 Temperature 37.3 C Heart Rate 77 Respiratory 16 Rate Blood Pressure 150/70 H O2 Saturation 100 Oxygen O2 Source Room air PD Medical Decision Making - ED course Complexity details: considered differential, d/w patient ED course: Patient is positive for COVID at home, has prostate cancer, he is on several medications that interact with Paxlovid, therefore we will prescribe molnupiravir instead. We will have him follow-up with his PCP for further care. He is well-appearing, nontoxic. Afebrile. No indication for further testing at this time. Patient counseled regarding signs and symptoms for which I believe and urgent re-evaluation would be necessary. Patient with good understanding of and agreement to plan and is comfortable going home at this time This document was made in part using voice recognition software. While efforts are made to proofread this document, sound alike and grammatical errors may occur. Departure - Departure Disposition: 01 Home, Self Care Clinical Impression: COVID-19 Condition: Good Instructions: ED Viral Syndrome Follow-Up: JAMARCUS HI ARNP [Primary Care Provider] - As Needed Comments: We have started you on molnupiravir today. Please continue your current medications at home. As we discussed Paxlovid interacts with several of your other medications, so this was avoided. Please return if you worsen. Forms: PCP List Discharge Date/Time: 11/18/22 15:39
[2022-11-18] MEDS: MOLNUPIRAVIR PREPACK PO STA (15:25)
== END 2022-11-18 15:39 | disposition home or self-care (01) ==
LOC: ED 14:55
DX: U07.1 COVID-19 (principal); I25.810 Atherosclerosis of coronary artery bypass graft(s) without angina pectoris; Z95.1 Presence of aortocoronary bypass graft; Z79.82 Long term (current) use of aspirin; Z79.899 Other long term (current) drug therapy
CPT/HCPCS: 99282; 99283

== ENCOUNTER 2023-02-07 09:15 | Outpatient (CLI) | payer MEDICARE ==
[2023-02-07 10:00] LABS: ALBUMIN 4.6 g/dL (3.2-5.5); ALKALINE PHOSPHATASE 55 IU/L (42-121); ALT ALANINE AMINOTRANSFERASE 12 IU/L (10-60); AST ASPARTATE AMINOTRANSFERASE 15 IU/L (10-42); BILIRUBIN,DIRECT < 0.10 mg/dL (0.03-0.18); BILIRUBIN,TOTAL 0.6 mg/dL (0.2-1.0); CHOL/HDL RATIO 2.9 (<5.0); CHOLESTEROL 172 mg/dL; HDL CHOLESTEROL 60 mg/dL; LDL CHOLESTEROL,CALCULATED 84 mg/dL; LDL/HDL RATIO 1.4 (<3.6); TRIGLYCERIDES 138 mg/dL (48-352); VLDL CHOLESTEROL 28 mg/dL
== END 2023-02-07 09:16 | disposition home or self-care (01) ==
LOC: LAB 09:15
PROVIDERS: ATTEND Internal Medicine
DX: C61 Malignant neoplasm of prostate (principal); I25.10 Atherosclerotic heart disease of native coronary artery without angina pectoris
CPT/HCPCS: 36415; 80061; 80076; 81599; 83721; 84153

== ENCOUNTER 2023-05-21 17:10 | Outpatient (CLI) | payer MEDICARE ==
[2023-05-21 17:31] LABS: BASOPHILS # (AUTO) 0.1 10^3/uL (0.0-0.1); BASOPHILS % (AUTO) 1.7 %; EOSINOPHILS # (AUTO) 0.1 10^3/uL (0.0-0.7); EOSINOPHILS % (AUTO) 2.8 %; HCT - HEMATOCRIT 37.1 % (42.0-52.0); HGB - HEMOGLOBIN 12.1 g/dL (14.0-18.0); LYMPHOCYTES % (AUTO) 26.9 %; MEAN CORPUSCULAR HEMOGLOBIN 28.7 pg (27.0-31.0); MEAN CORPUSCULAR HGB CONC 32.6 g/dL (32.0-36.0); MEAN CORPUSCULAR VOLUME 87.9 fL (80.0-94.0); MEAN PLATELET VOLUME 9.2 fL (7.4-11.4); MONOCYTES # (AUTO) 0.4 10^3/uL (0.0-1.0); MONOCYTES % (AUTO) 12.3 %; PLT - PLATELET COUNT 177 10^3/uL (130-450); RED BLOOD COUNT 4.22 10^6/uL (4.70-6.10); WHITE BLOOD COUNT 3.6 x10^3/uL (4.8-10.8)
[2023-05-21 17:46] LABS: ALBUMIN 4.3 g/dL (3.2-5.5); BILIRUBIN,TOTAL 0.7 mg/dL (0.2-1.0); CALCIUM 9.4 mg/dL (8.5-10.3); CREATININE 1.1 mg/dL (0.6-1.3); POTASSIUM 3.9 mmol/L (3.5-4.5); TOTAL PROTEIN 6.5 g/dL (6.4-8.9)
== END 2023-05-21 17:11 | disposition home or self-care (01) ==
LOC: LAB 17:10
PROVIDERS: ATTEND Specialist
DX: C79.51 Secondary malignant neoplasm of bone (principal)
CPT/HCPCS: 36415; 80053; 84153; 85025

== ENCOUNTER 2023-07-24 09:47 | Outpatient (CLI) | payer MEDICARE ==
[2023-07-24 16:04] LABS: ALBUMIN 4.4 g/dL (3.2-5.5); ALBUMIN/GLOBULIN RATIO 1.6 (1.0-2.2); BILIRUBIN,TOTAL 0.7 mg/dL (0.2-1.0); CALCIUM 9.7 mg/dL (8.5-10.3); CREATININE 1.4 mg/dL (0.6-1.3); POTASSIUM 4.5 mmol/L (3.5-4.5); TOTAL PROTEIN 7.1 g/dL (6.4-8.9)
== END 2023-07-24 09:48 | disposition home or self-care (01) ==
LOC: LAB.S 09:47
PROVIDERS: ATTEND Internal Medicine
DX: C79.51 Secondary malignant neoplasm of bone (principal); C61 Malignant neoplasm of prostate
CPT/HCPCS: 36415; 80053

== ENCOUNTER 2023-09-24 13:45 | Outpatient (CLI) | payer MEDICARE | END 2023-09-24 13:46 | disposition home or self-care (01) | LOC: LAB 13:45 | PROVIDERS: ATTEND Internal Medicine | DX: C61 Malignant neoplasm of prostate (principal); C79.51 Secondary malignant neoplasm of bone | CPT/HCPCS: 81599 ==

== ENCOUNTER 2023-10-23 11:23 | Outpatient (CLI) | payer MEDICARE ==
[2023-10-23 11:35] LABS: HGB - HEMOGLOBIN 7.9 g/dL (14.0-18.0); MEAN CORPUSCULAR HEMOGLOBIN 27.9 pg (27.0-31.0); MEAN CORPUSCULAR HGB CONC 31.6 g/dL (32.0-36.0); MEAN CORPUSCULAR VOLUME 88.3 fL (80.0-94.0); MEAN PLATELET VOLUME 8.9 fL (7.4-11.4); RED BLOOD COUNT 2.83 10^6/uL (4.70-6.10); RED CELL DISTRIBUTION WIDTH 13.7 % (12.0-15.0); WHITE BLOOD COUNT 5.3 x10^3/uL (4.8-10.8)
[2023-10-23 11:59] LABS: CREATININE 1.4 mg/dL (0.6-1.3); POTASSIUM 4.3 mmol/L (3.5-4.5)
== END 2023-10-23 11:24 | disposition home or self-care (01) ==
LOC: LAB 11:23
PROVIDERS: ATTEND Urology
DX: R31.0 Gross hematuria (principal)
CPT/HCPCS: 36415; 80048; 85027

== ENCOUNTER 2023-11-09 11:36 | Outpatient (CLI) | payer MEDICARE ==
[2023-11-09 11:50] LABS: HCT - HEMATOCRIT 27.8 % (42.0-52.0); HGB - HEMOGLOBIN 8.7 g/dL (14.0-18.0); MEAN CORPUSCULAR HEMOGLOBIN 28.3 pg (27.0-31.0); MEAN CORPUSCULAR HGB CONC 31.3 g/dL (32.0-36.0); MEAN CORPUSCULAR VOLUME 90.6 fL (80.0-94.0); MEAN PLATELET VOLUME 8.7 fL (7.4-11.4); RED BLOOD COUNT 3.07 10^6/uL (4.70-6.10); RED CELL DISTRIBUTION WIDTH 14.6 % (12.0-15.0); WHITE BLOOD COUNT 6.7 x10^3/uL (4.8-10.8)
== END 2023-11-09 11:37 | disposition home or self-care (01) ==
LOC: LAB 11:36
PROVIDERS: ATTEND Urology
DX: R31.0 Gross hematuria (principal)
CPT/HCPCS: 36415; 85027

== ENCOUNTER 2023-11-13 15:06 | Outpatient (CLI) | payer MEDICARE ==
[2023-11-13 15:16] LABS: HCT - HEMATOCRIT 28.5 % (42.0-52.0)
== END 2023-11-13 15:07 | disposition home or self-care (01) ==
LOC: LAB 15:06
PROVIDERS: ATTEND Internal Medicine
DX: D50.0 Iron deficiency anemia secondary to blood loss (chronic) (principal)
CPT/HCPCS: 36415; 85014; 85018

== ENCOUNTER 2023-11-18 16:09 | Outpatient (CLI) | payer MEDICARE ==
[2023-11-18 16:46] LABS: HCT - HEMATOCRIT 30.7 % (42.0-52.0); HGB - HEMOGLOBIN 9.4 g/dL (14.0-18.0)
== END 2023-11-18 16:10 | disposition home or self-care (01) ==
LOC: LAB 16:09
PROVIDERS: ATTEND Internal Medicine
DX: D50.0 Iron deficiency anemia secondary to blood loss (chronic) (principal)
CPT/HCPCS: 36415; 85014; 85018

== ENCOUNTER 2023-11-28 10:38 | Outpatient (CLI) | payer MEDICARE ==
[2023-11-28 11:02] LABS: HCT - HEMATOCRIT 31.4 % (42.0-52.0); HGB - HEMOGLOBIN 9.7 g/dL (14.0-18.0)
== END 2023-11-28 10:39 | disposition home or self-care (01) ==
LOC: LAB 10:38
PROVIDERS: ATTEND Internal Medicine
DX: C61 Malignant neoplasm of prostate (principal); C79.51 Secondary malignant neoplasm of bone; D50.0 Iron deficiency anemia secondary to blood loss (chronic)
CPT/HCPCS: 36415; 84153; 85014; 85018